=== PATIENT | female | born 1965 | race Caucasian/White ===

== ENCOUNTER 2022-04-01 07:05 | Day surgery (SDC) | payer OTHER ==
[~2022-04-01] VITALS: Ht 172.7 cm; Wt 90.7 kg
[2022-04-01] MEDS ORDERED: MIDAZOLAM HCL 5 MG/5 ML VIAL ONE (09:58)
[2022-04-01] MEDS ORDERED: SIMETHICONE 40 MG/0.6 ML ML ONE (09:58)
[2022-04-01] MEDS ORDERED: MEPERIDINE 100 MG INJ. 100 MG/ML VIAL ONE (09:58)
[2022-04-01 15:12] VITALS: BP_SYST 141
== END 2022-04-01 11:50 | disposition home or self-care (01) ==
LOC: SDS 07:05 → SMU 07:06 → SDS 11:50
PROVIDERS: ATTEND Internal Medicine Gastroenterology
DX: K27.9 Peptic ulcer, site unspecified, unspecified as acute or chronic, without hemorrhage or perforation (principal); K29.50 Unspecified chronic gastritis without bleeding; K29.80 Duodenitis without bleeding; K44.9 Diaphragmatic hernia without obstruction or gangrene; K29.70 Gastritis, unspecified, without bleeding; I10 Essential (primary) hypertension; Z20.822 Contact with and (suspected) exposure to COVID-19; Z79.899 Other long term (current) drug therapy
CPT/HCPCS: 36415 ×2; 43239; 87426; 87081; 88305; 88312; 88313; 99152; U0003; G0378; J2250; J2175

== ENCOUNTER 2023-01-02 08:01 | Emergency (ER) | payer OTHER ==
[~2023-01-02] VITALS: Ht 162.6 cm; Wt 74.8 kg
[2023-01-02 08:10] VITALS: BP_SYST 126
[2023-01-02] MEDS ORDERED: KETOROLAC TROMETHAMINE 60 MG/2 ML VIAL IM ONE (08:30)
[2023-01-02] MEDS ORDERED: IBUPROFEN 800 MG TABLET PO ONE (08:45)
[2023-01-02 09:22] VITALS: BP_SYST 126
== END 2023-01-02 09:23 | disposition home or self-care (01) ==
LOC: SED 08:01
DX: S62.613A Displaced fracture of proximal phalanx of left middle finger, initial encounter for closed fracture (principal); F17.200 Nicotine dependence, unspecified, uncomplicated; Z79.899 Other long term (current) drug therapy; W19.XXXA Unspecified fall, initial encounter; Y93.89 Activity, other specified; Y92.89 Other specified places as the place of occurrence of the external cause; Y99.8 Other external cause status
CPT/HCPCS: 99283; 99284; J1885

== ENCOUNTER 2023-03-09 21:50 | Emergency (ER) | payer OTHER ==
[~2023-03-09] VITALS: Ht 175.3 cm; Wt 81.6 kg
[2023-03-09 22:01] VITALS: BP_SYST 132
[2023-03-10 00:12] VITALS: BP_SYST 126
== END 2023-03-10 00:12 | disposition home or self-care (01) ==
LOC: SED 21:50
DX: T42.6X1A Poisoning by other antiepileptic and sedative-hypnotic drugs, accidental (unintentional), initial encounter (principal); Z79.899 Other long term (current) drug therapy; Y92.89 Other specified places as the place of occurrence of the external cause
CPT/HCPCS: 93005; 99283